=== PATIENT | male | born 1975 | race Caucasian/White ===

== ENCOUNTER 2016-12-06 12:18 | Emergency (ER) | payer OTHER ==
[~2016-12-06] VITALS: Ht 182.9 cm; Wt 168.1 kg
[~2016-12-06 12:18] MED LIST: GEMFIBROZIL600 MG PO; LISINOPRIL40 MG PO; NOHOMEMEDS; NORVASC10 M1 PO; NORVASC10 MG PO; NORVASC5 MG PO; ZESTRIL,PRINIVI10 MG PO; ZESTRIL,PRINIVI40 MG PO
[2016-12-06] MEDS ORDERED: ULTRAM50 MG PO (13:52)
[2016-12-06 14:10] VITALS: BP 127/95
== END 2016-12-06 14:12 | disposition home or self-care (01) ==
LOC: EME 12:18
DX: S83.92XA Sprain of unspecified site of left knee, initial encounter (principal); S93.402A Sprain of unspecified ligament of left ankle, initial encounter; X50.9XXA Other and unspecified overexertion or strenuous movements or postures, initial encounter; I10 Essential (primary) hypertension
CPT/HCPCS: 73564; 73610; 99281; 99284

== ENCOUNTER 2017-01-31 16:40 | Emergency (ER) | payer OTHER ==
[~2017-01-31] VITALS: Ht 182.9 cm; Wt 174.6 kg
[~2017-01-31 16:40] MED LIST changes: +ULTRAM50 MG PO
[2017-01-31 17:48] LABS: HEMATOCRIT 43.3 % (38.0-50.0); MCH 26.6 PG (29.0-34.0); MCHC 32.3 G/DL (30.0-36.0); MCV 82.2 FL (86-99); MEAN PLAT.VOLUME 10.8 uM^3 (9.0-12.4); PLATELET COUNT 243 K/uL (156-360); RBC DIS.WIDTH-CV 13.9 % (11.8-14.6); RBC DIS.WIDTH-SD 41.5 % (39-53); RED BLOOD COUNT 5.27 M/uL (4.00-5.50); WHITE BLOOD COUNT 12.7 K/uL (4.1-10.2)
[2017-01-31 17:53] LABS: ADD MIUA? YES; BILIRUBIN NEGATIVE; BLOOD SMALL; COLOR YELLOW ((YELLOW)); GLUCOSE (STRIP) NEGATIVE; KETONES NEGATIVE; LEUKOCYTES NEGATIVE; NITRITE NEGATIVE; PROTEIN (STRIP) NEGATIVE; UROBILINOGEN 0.2 MG/DL (0.2-1.0)
[2017-01-31 17:57] LABS: CHLORIDE 105 mEq/L (99-109); POTASSIUM 3.9 mEq/L (3.7-5.4); SODIUM 139 mEq/L (136-147)
[2017-01-31 18:00] LABS: GLUCOSE 87 mg/dL (70-99)
[2017-01-31 18:01] LABS: ANION GAP 8 MEQ/L (2-14)
[2017-01-31 18:02] LABS: TOTAL BILIRUBIN 0.3 mg/dL (0.0-1.0)
[2017-01-31 18:03] LABS: ALKALINE PHOSPHATASE 55 IU/L (3-129); GFR ESTIMATE (CALCULATED) > 59 mL/min/
[2017-01-31 18:04] LABS: UREA NITROGEN (BUN) 12 mg/dL (9-23)
[2017-01-31 18:07] LABS: LIPASE 21 U/L (1.0-51.0)
[2017-01-31 18:15] LABS: UCUL ADDED? NO
[2017-01-31] MEDS ORDERED: NORCO 5/3251 TABLET PO (18:36)
[2017-01-31 18:48] VITALS: BP 131/79
== END 2017-01-31 18:49 | disposition home or self-care (01) ==
LOC: EME 16:40
PROVIDERS: Emergency Medicine
DX: R10.30 Lower abdominal pain, unspecified (principal); I10 Essential (primary) hypertension; E78.5 Hyperlipidemia, unspecified; J45.909 Unspecified asthma, uncomplicated; F32.9 Major depressive disorder, single episode, unspecified; F17.200 Nicotine dependence, unspecified, uncomplicated; F41.9 Anxiety disorder, unspecified
CPT/HCPCS: 74177; 80053; 81003; 83690; 85027; 93005; 99281; 99284; J2270; J7030

== ENCOUNTER → 2017-02-20 | Outpatient (CLI) | payer OTHER ==
[~2017-02-20] MED LIST changes: +NORCO 5/3251 TABLET PO
== END | disposition home or self-care (01) ==
LOC: EKG 13:00
DX: I27.20 Pulmonary hypertension, unspecified (principal); I05.1 Rheumatic mitral insufficiency; I70.0 Atherosclerosis of aorta; I07.1 Rheumatic tricuspid insufficiency; I09.89 Other specified rheumatic heart diseases; R94.31 Abnormal electrocardiogram [ECG] [EKG]
CPT/HCPCS: 93306

== ENCOUNTER 2017-02-27 08:23 | Emergency (ER) | payer OTHER ==
[~2017-02-27] VITALS: Ht 185.4 cm; Wt 178.6 kg
[2017-02-27 08:34] VITALS: BP 122/68
[2017-02-27 09:03] LABS: HEMATOCRIT 43.9 % (38.0-50.0); MCH 26.8 PG (29.0-34.0); MCHC 32.6 G/DL (30.0-36.0); MCV 82.4 FL (86-99); PLATELET COUNT 250 K/uL (156-360); RBC DIS.WIDTH-CV 14.4 % (11.8-14.6); RBC DIS.WIDTH-SD 42.5 % (39-53); RED BLOOD COUNT 5.33 M/uL (4.00-5.50)
[2017-02-27 09:14] LABS: CHLORIDE 102 mEq/L (99-109); POTASSIUM 4.5 mEq/L (3.7-5.4); SODIUM 142 mEq/L (136-147)
[2017-02-27 09:16] LABS: GLUCOSE 97 mg/dL (70-99)
[2017-02-27 09:17] LABS: ANION GAP 9 MEQ/L (2-14)
[2017-02-27 09:19] LABS: GFR ESTIMATE (CALCULATED) > 59 mL/min/ (58.99-99999)
[2017-02-27 09:20] LABS: UREA NITROGEN (BUN) 10 mg/dL (9-23)
[2017-02-27 09:24] LABS: TROP-I INTERPRETATION NEGATIVE; TROPONIN-I < 0.01 ng/mL (0.0-0.30)
== END 2017-02-27 10:15 | disposition left against medical advice (07) ==
LOC: EME 08:23
DX: R07.9 Chest pain, unspecified (principal); Z53.21 Procedure and treatment not carried out due to patient leaving prior to being seen by health care provider
CPT/HCPCS: 71020; 80048; 84484; 85027; 93005; 99281

== ENCOUNTER → 2017-03-01 | Outpatient (CLI) | payer OTHER | END | disposition home or self-care (01) | LOC: NUC 07:30 | DX: R94.39 Abnormal result of other cardiovascular function study (principal); R06.02 Shortness of breath; I10 Essential (primary) hypertension; E66.01 Morbid (severe) obesity due to excess calories | CPT/HCPCS: 78452; 78999; 93017; A9500; J2785 ==

== ENCOUNTER 2017-07-03 07:42 | Day surgery (SDC) | payer OTHER ==
[~2017-07-03] VITALS: Ht 182.9 cm; Wt 170.1 kg
[~2017-07-03 07:42] MED LIST changes: +BUSPAR30 MG PO; +HYDROCHLOROTHIA25 MG PO; +NEURONTIN400 MG PO; +SUBOXONE 8 MG-1 EAC2 SL
[2017-07-03 08:19] VITALS: BP 131/59
[2017-07-03 13:24] VITALS: BP 139/80
== END 2017-07-03 13:40 | disposition home or self-care (01) ==
LOC: SDC 07:42
PROC: 0LST0ZZ Reposition Left Ankle Tendon, Open Approach (ICD-10-PCS; principal; 2017-07-03)
DX: M25.372 Other instability, left ankle (principal); G25.2 Other specified forms of tremor; I10 Essential (primary) hypertension; F32.9 Major depressive disorder, single episode, unspecified; F17.210 Nicotine dependence, cigarettes, uncomplicated; Z82.61 Family history of arthritis; Z82.49 Family history of ischemic heart disease and other diseases of the circulatory system; Z83.3 Family history of diabetes mellitus; Z68.43 Body mass index [BMI] 50.0-59.9, adult
CPT/HCPCS: C1713; J0330; J0690; J2250; J2405; J2710; J2795; J3010; J7643; S0020

== ENCOUNTER 2017-07-15 13:57 | Emergency (ER) | payer OTHER ==
[~2017-07-15] VITALS: Ht 182.9 cm; Wt 187.5 kg
[2017-07-15] MEDS ORDERED: NAPROSYN500 MG PO (14:55)
[2017-07-15] MEDS ORDERED: PERCOCET 5/31 TABLET PO (14:55)
[2017-07-15 15:46] VITALS: BP 144/86
== END 2017-07-15 15:46 | disposition home or self-care (01) ==
LOC: EME 13:57
PROC: 2W3RX1Z Immobilization of Left Lower Leg using Splint (ICD-10-PCS; principal; 2017-07-15)
DX: M25.572 Pain in left ankle and joints of left foot (principal); Z98.890 Other specified postprocedural states; J45.909 Unspecified asthma, uncomplicated; F32.9 Major depressive disorder, single episode, unspecified; E78.5 Hyperlipidemia, unspecified; F41.9 Anxiety disorder, unspecified; I10 Essential (primary) hypertension; F17.200 Nicotine dependence, unspecified, uncomplicated
CPT/HCPCS: 73610; 99281; 99284; J1885